=== PATIENT | male | born 1945 ===

== ENCOUNTER 2020-04-26 07:30 | Outpatient (REF) | payer MEDICARE, OTHER, SELFPAY ==
[2020-04-26 10:40] LABS: MANUAL DIFF FLAG NO
[2020-04-26 10:46] LABS: Basophils Absolute Auto 0.1 X10*3/uL (0.0-0.2); Basophils Percent Auto 0.7 % (0-2); Eosinophils Absolute Auto 0.3 X10*3/uL (0.0-0.4); Eosinophils Percent Auto 3.3 % (0-4); Hematocrit 45.6 % (42-52); Hemoglobin 15.4 g/dl (14.0-18.0); Imm Gran Abs Auto 0.02 X10*3/uL (0.00-0.03); Imm Gran Pct Auto 0.2 % (0.0-0.4); Lymphocytes Absolute Auto 3.3 X10*3/uL (1.2-4.9); Lymphocytes Percent Auto 33.1 % (20-40); Mean Corpuscular HGB Conc 33.8 g/dl (31.0-36.0); Mean Corpuscular Hemoglobin 33.4 pg (27.0-33.0); Mean Corpuscular Volume 98.9 fL (80-98); Mean Platelet Volume 10.8 fL (9.4-12.4); Monocytes Absolute Auto 1.1 X10*3/uL (0.1-1.2); Monocytes Percent Auto 10.7 % (2-11); Neutrophils Absolute Auto 5.1 X10*3/uL (2.0-8.3); Platelet Count 244 X10*3/uL (160-400); Red Blood Count 4.61 X10*6/uL (4.60-5.80); White Blood Count 9.9 X10*3/uL (4.8-10.8)
[2020-04-26 11:16] LABS: Alanine Aminotransferase 35 U/L (0-40); Albumin Level 4.2 g/dL (3.5-5.0); Alkaline Phosphatase 74 U/L (39-117); Anion Gap 11 (12-20); Aspartate Amino Transferase 25 U/L (5-37); Bilirubin Total 0.6 mg/dL (0.0-1.0); Blood Urea Nitrogen 8 mg/dL (9-16); Calcium 9.8 mg/dL (8.4-10.2); Carbon Dioxide 30 mmol/L (22-29); Chloride 103 mmol/L (96-108); Cholesterol 155 mg/dL; Estimated Glomerular Filt Rate > 60; Glucose Fasting 124 mg/dL (60-99); HDL Cholesterol 47 mg/dL; LDL Cholesterol Calculated 90 mg/dl; Sodium 139 mmol/L (135-145); Total Protein 6.9 g/dL (6.5-8.0); Triglycerides 91 mg/dL
[2020-04-26 11:37] LABS: TSH reflex Free T4 1.35 mIU/mL (0.32-4.0)
== END 2020-04-26 07:31 | disposition home or self-care (01) ==
LOC: HO.WFDLDS 07:30
PROVIDERS: Visit Provider Family Medicine
DX: Z00.00 Encounter for general adult medical examination without abnormal findings (principal); E78.5 Hyperlipidemia, unspecified; R53.1 Weakness
CPT/HCPCS: 36415; 80053; 80061; 84443; 85025